=== PATIENT | female | born 1960 | race Caucasian/White ===

== ENCOUNTER 2018-10-03 03:55 | Emergency (ER) | payer MEDICARE, OTHER ==
[~2018-10-03] VITALS: Ht 160 cm; Wt 79.8 kg
--- NOTE | 2018-10-03 04:26 | ED EENT ---
History of Present Illness General Stated Complaint: PAIN IN HEADACHE, EAR Source: patient, spouse History of Present Illness Date Seen by Provider: Oct 03, 2018 Time Seen by Provider: 04:08 Initial Comments 58-year-old female presenting with complaints of pain sick over the last week with "the flu". Tonight she felt like her ears were plugged and she tried to flush them out with some Debrox solution. After that she was having severe right ear pain when going to bed. She was unable to rest due to this. Pain. Finally after over 6 hours of being in pain she came to the emergency department to be evaluated. She states that she is in between providers currently since she has not seen anyone since [facility] closed. She takes hormone therapy and some oc casional chronic pain medicine for her back. She has been having a sore throat and painful swallowing as well as pressure in the right maxillary sinus and now tonight having severe right ear pain. There has been some drainage from the ear since she tried to flush her ears tonight. She has had subjective fever and chills this week as well. She has had poor appetite as well. Allergies and Home Medications Allergies Coded Allergies: No Known Drug Allergies (Unverified , 10/03/18) Home Medications Amoxicillin/Potassium Clav 1 Each Tablet, 1 EACH PO BID Prescribed by: GLYNN STEARNSRT on 10/03/18637 Hydrocodone Bit/Acetaminophen 1 Tab Tab, 1 EACH PO Q6H PRN for PAIN-MODERATE TO SEVERE For Mastoiditis/Sinusitis Prescribed by: GLYNN STEARNSRT on 10/03/18637 Prednisone 20 Mg Tab, 40 MG PO DAILY Prescribed by: GLYNN JENSEN on 10/03/18 0638 Patient Home Medication List Home Medication List Reviewed: Yes Review of Systems Review of Systems Constitutional: see HPI Eyes: See HPI Ears: See HPI Nose: see HPI Mouth: see HPI Throat: see HPI Respiratory: see HPI, cough Cardiovascular: chest pain (chest wall pain from coughing) Gastrointestinal: see HPI, loss of appetite Musculoskeletal: other (generalized body aches and pains) Skin: no symptoms reported Neurological: Anxiety, Headache (especially on the right side) Past Eppwkjg-Ebzwfl-Jluxiq Hx Past Med/Social Hx: Reviewed Nursing Past Med/Soc Hx Physical Exam Vital Signs Vital Signs - First Documented 10/03/18 04:05 Temp 98.2 Pulse 88 Resp 16 B/P (MAP) 193/106 (135) Pulse Ox 97 O2 Delivery Room Air Height, Weight, BMI Height: '" Weight: lbs. oz. kg; BMI Method: General Appearance: WD/WN, moderate distress Eyes: bilateral eye PERRL, bilateral eye EOMI Ears: right ear bleeding, right ear discharge, right ear erythema, right ear tenderness, right ear other (unable to visualize TM due to drainage and blood in the canal); left ear TM dull, left ear TM red, left ear TM bulging Nose: sinus tenderness (right maxillary) Mouth/Throat: pharynx swelling; No tongue swollen, No tonsillar exudate Neck: full range of motion, supple, lymphadenopathy (R), lymphadenopathy (L), tender lateral Cardiovascular: normal peripheral pulses, regular rate, rhythm Respiratory: chest non-tender, lungs clear, normal breath sounds, no re spiratory distress, no accessory muscle use Neurologic/Psychiatric: alert, oriented x 3 Skin: normal color, warm/dry Progress/Results/Core Measures Results/Orders Lab Results Laboratory Tests Test 10/03/18 04:33 10/03/18 04:35 Range/Units White Blood Count 14.9 H 4.3-11.0 10^3/uL Red Blood Count 4.53 4.35-5.85 10^6/uL Hemoglobin 13.8 11.5-16.0 G/DL Hematocrit 42 35-52 % Mean Corpuscular Volume 92 80-99 FL Mean Corpuscular Hemoglobin 30 25-34 PG Mean Corpuscular Hemoglobin Concent 33 32-36 G/DL Red Cell Distribution Width 12.4 10.0-14.5 % Platelet Count 334 130-400 10^3/uL Mean Platelet Volume 8.7 7.4-10.4 FL Neutrophils (%) (Auto) 78 H 42-75 % Lymphocytes (%) (Auto) 11 L 12-44 % Monocytes (%) (Auto) 10 0-12 % Eosinophils (%) (Auto) 1 0-10 % Basophils (%) (Auto) 0 0-10 % Neutrophils # (Auto) 11.5 H 1.8-7.8 X 10^3 Lymphocytes # (Auto) 1.7 1.0-4.0 X 10^3 Monocytes # (Auto) 1.6 H 0.0-1.0 X 10^3 Eosinophils # (Auto) 0.1 0.0-0.3 10^3/uL Basophils # (Auto) 0.0 0.0-0.1 10^3/uL Neutrophils % (Manual) 67 % Lymphocytes % (Manual) 11 % Monocytes % (Manual) 11 % Eosinophils % (Manual) 1 % Band Neutrophils 6 % Reactive Lymphocytes 4 % Blood Morphology Comment NORMAL Sodium Level 140 135-145 MMOL/L Potassium Level 4.0 3.6-5.0 MMOL/L Chloride Level 100 98-107 MMOL/L Carbon Dioxide Level 25 21-32 MMOL/L Anion Gap 15 H 5-14 MMOL/L Blood Urea Nitrogen 9 7-18 MG/DL Creatinine 0.72 0.60-1.30 MG/DL Estimat Glomerular Filtration Rate > 60 BUN/Creatinine Ratio 13 Glucose Level 111 H 70-105 MG/DL Calcium Level 9.4 8.5-10.1 MG/DL Corrected Calcium 9.3 8.5-10.1 MG/DL Total Bilirubin 0.3 0.1-1.0 MG/DL Aspartate Amino Transf (AST/SGOT) 16 5-34 U/L Alanine Aminotransferase (ALT/SGPT) 15 0-55 U/L Alkaline Phosphatase 85 40-136 U/L Total Protein 7.4 6.4-8.2 GM/DL Albumin 4.1 3.2-4.5 GM/DL Group A Streptococcus Screen NEGATIVE NEGATIVE My Orders Orders - GLYNN JENSEN MD Cbc With Automated Diff (10/03/18 04:16) Comprehensive Metabolic Panel (10/03/18 04:16) Rapid Strep A Screen (10/03/18 04:16) Ed Iv/Invasive Line Start (10/03/18 04:16) Dexamethasone Injection (Decadron Inject (10/03/18 04:30) Fentanyl Injection (Sublimaze Injection (10/03/18 04:30) Ns Iv 1000 Ml (Sodium Chloride 0.9%) (10/03/18 04:30) Ct Maxillofacial Wo (10/03/18 04:16) Hydromorphone Injection (Dilaudid Inject (10/03/18 05:12) Ceftriaxone For Iv Use (Rocephin For I (10/03/18 05:13) Manual Differential (10/03/18 04:33) Rx-Hydrocodone/Apap 5-325 Mg (Rx-Vicodin (10/03/18 06:30) Medications Given in ED Vital Signs/I&O Progress Progress Note #1: Progress Note check labs and CT scan through sinuses. Give IVF for hydration, Steroid for swelling and pain, Fentanyl for pain. Progress Note #2: Progress Note Labs show mild elevation of her white blood cell count. Chemistries stable. Her CT scan does show some fluid in the mastoid sinuses and ethmoid sinuses. With her symptoms improved after treatment in the ED Will continue with steroids and pain medicine at home. Encouraged follow-up and return precautions. Advised to check with Dr. Luevano an ENT if she has continued symptoms. Reviewed symptomatic treatment for possible ruptured TM since I was unable to visualize the tympanic membrane on the right side. Diagnostic Imaging Diagonstic Imaging: CT Plain Films/CT/US/NM/MRI: facial bones Comments Mild ethmoid sinus and mixillary sinus mucosal thickening. No air-fluid levels. Mild right mastoid effusion. Read by Dr. Cassandra Noyola at [id number] and faxed at [phone] Reviewed: [facility] Impression Primary Impression: Acute mastoiditis of right side Additional Impression: Acute pain of right ear Disposition: HOME, SELF-CARE Condition: Stable Departure-Patient Inst. Decision time for Depature: 06:30 Referrals: ARABELLA LUEVAON MD NO,LOCAL PHYSICIAN (PCP) Primary Care Physician Patient Instructions: Eustachian Tube Problems (DC), Mastoiditis (DC), Ruptured Eardrum (DC), Sinusitis, Adult (DC) Add. Discharge Instructions: Take antibiotics until gone. Follow up with Dr. Arabella Luevano in clinic this week about your ear, sinuses and Mastoiditis. Try to keep your head elevated when you are resting or sleeping so that you do not get extra pressure built up in your ears and sinuses. Do not let water or fluids get down in your ears when bathing or showering and do not instill any drops in your ears. Scripts Prednisone (Prednisone) 20 Mg Tab 40 MG PO DAILY for 5 Days, #10 TAB 0 Refills Prov: GLYNN JENSEN MD 10/03/18 Hydrocodone Bit/Acetaminophen (Hydrocodone/Acetaminophen 5/325mg Tablet) 1 Tab Tab 1 EACH PO Q6H PRN for PAIN-MODERATE TO SEVERE MDD 10 for 7 Days, #30 TAB 0 Refills For Mastoiditis/Sinusitis Prov: GLYNN JENSEN MD 10/03/18 Amoxicillin/Potassium Clav (Augmentin 875-125 Tablet) 1 Each Tablet 1 EACH PO BID for sinusitis for 10 Days, #20 TAB 0 Refills Prov: GLYNN JENSEN MD 10/03/18 GLYNN JENSEN MD Oct 03, 2018 04:26
[2018-10-03] MEDS ORDERED: NS IV 1000 ML 1,000 ML IV SCH (04:30)
[2018-10-03] MEDS ORDERED: DEXAMETHASONE 10 MG/ML (DECADRON) 1 ML VIAL IV ONE (04:30)
[2018-10-03] MEDS ORDERED: fentaNYL INJECTION 100 MCG/2 ML AMP IVP ONE (04:30)
[2018-10-03] MEDS ORDERED: HYDROmorphone 2 MG/ML VIAL (DILAUDID) IV STA (05:12)
[2018-10-03 05:13] LABS: HEMATOCRIT 42 % (35-52); HEMOGLOBIN 13.8 G/DL (11.5-16.0); MEAN CORPUSCULAR HEMOGLOBIN 30 PG (25-34); MEAN CORPUSCULAR HGB CONC 33 G/DL (32-36); MEAN CORPUSCULAR VOLUME 92 FL (80-99); RED CELL DISTRIBUTION WIDTH 12.4 % (10.0-14.5); WHITE BLOOD COUNT 14.9 10^3/uL (4.3-11.0)
[2018-10-03] MEDS ORDERED: cefTRIAXone FOR IV USE 1,000 MG in WATER (STERILE) FOR INJECTION 10 ML IV STA (05:13)
[2018-10-03 05:14] LABS: BASOPHILS % (AUTO) 0 % (0-10); EOSINOPHILS # (AUTO) 0.1 10^3/uL (0.0-0.3); EOSINOPHILS % (AUTO) 1 % (0-10); LYMPHOCYTES # (AUTO) 1.7 X 10^3 (1.0-4.0); LYMPHOCYTES % (AUTO) 11 % (12-44); MEAN PLATELET VOLUME 8.7 FL (7.4-10.4); MONOCYTES # (AUTO) 1.6 X 10^3 (0.0-1.0); MONOCYTES % (AUTO) 10 % (0-12); NEUTROPHILS # (AUTO) 11.5 X 10^3 (1.8-7.8); NEUTROPHILS % (AUTO) 78 % (42-75); PLATELET COUNT 334 10^3/uL (130-400)
[2018-10-03 05:20] LABS: BILIRUBIN,TOTAL 0.3 MG/DL (0.1-1.0); BUN/CREATININE RATIO 13; CALCIUM 9.4 MG/DL (8.5-10.1); CARBON DIOXIDE 25 MMOL/L (21-32); CHLORIDE 100 MMOL/L (98-107); CREATININE SERUM 0.72 MG/DL (0.60-1.30); GFR ESTIMATED > 60; GLUCOSE 111 MG/DL (70-105); SODIUM 140 MMOL/L (135-145)
[2018-10-03 05:21] VITALS: BP 156/84
[2018-10-03 05:21] LABS: ALANINE AMINOTRANSFERASE 15 U/L (0-55); ALBUMIN 4.1 GM/DL (3.2-4.5); ALKALINE PHOSPHATASE 85 U/L (40-136); TOTAL PROTEIN 7.4 GM/DL (6.4-8.2)
[2018-10-03 05:52] LABS: BAND NEUTROPHILS 6 %; EOSINOPHILS % (MANUAL) 1 %; LYMPHOCYTES % (MANUAL) 11 %; MONOCYTES % (MANUAL) 11 %; NEUTROPHILS % (MANUAL) 67 %
[2018-10-03 05:53] LABS: RBC MORPH NORMAL; REACTIVE LYMPHOCYTES 4 %
[2018-10-03 06:27] VITALS: BP 147/85
--- NOTE | 2018-10-03 06:30 | Diagnostic Imaging Report ---
PROCEDURE: CT maxillofacial without contrast. TECHNIQUE: Multiple contiguous axial images were obtained through the facial bones without the use of intravenous contrast. Auto Exposure Controls were utilized during the CT exam to meet ALARA standards for radiation dose reduction. INDICATION: Right ear and sinus pain COMPARISON: None FINDINGS : BRAIN: The visualized brain and intracranial compartment is unremarkable. ORBITAL AND PERIORBITAL SOFT TISSUES: Globes are intact. No focal abnormalities demonstrated in the retrobulbar fat. The extraocular muscles are normal. FACIAL SOFT TISSUES: Ovoid calcification is demonstrated anterior to the superior aspect of the right parotid gland, possibly representing an epidermal inclusion cyst or retained foreign body. No focal collection or swelling is demonstrated. ORBITAL TAPIA: Normal. PARANASAL SINUSES: There is marked mucosal thickening in the inferior left maxillary sinus and to a lesser degree in the right maxillary sinus. There is marked mucosal thickening and partial opacification of the ethmoid air cells. There is partial opacification of the right mastoid air cells. The remaining paranasal sinuses and mastoid air cells are clear. NASAL BONES: No displaced fracture. ZYGOMATIC ARCHES: Normal. PTERYGOID PLATES: Normal. MAXILLA AND ALVEOLUS: Normal. MANDIBLE: Normal. No fracture or dislocation. IMPRESSION: Ethmoid and maxillary sinus mucosal thickening. Partial opacification of the right mastoid air cells. Mastoiditis should be excluded on a clinical basis. Findings are in agreement with initial teleradiology report. Dictated by: Dictated on workstation # [id number]
[2018-10-03] MEDS: RX-HYDROCODONE/APAP 5/325 MG #4 TAB PK PO PRN ×2 (06:35→06:36)
[2018-10-03] MEDS ORDERED: PRD20T PO (06:38)
[2018-10-03] MEDS ORDERED: AMOX-358 PO (06:38)
[2018-10-03] MEDS ORDERED: ACHD5005 PO (06:38)
== END 2018-10-03 06:48 | disposition home or self-care (01) ==
LOC: ER FS 03:58
DX: H70.001 Acute mastoiditis without complications, right ear (principal); Z79.52 Long term (current) use of systemic steroids
CPT/HCPCS: 36415; 70486; 80053; 85007; 85027; 87430; 96361; 96374; 96375

== ENCOUNTER → 2022-01-28 | Outpatient (CLI) | payer MEDICARE ==
[~2022-01-28] MED LIST: ACHD5005 PO; AMOX-358 PO; PRD20T PO
--- NOTE | 2022-01-28 19:40 | Diagnostic Imaging Report ---
INDICATION: Pain. COMPARISON: None available. TECHNIQUE: Two radiographs of the right hip dated 01/28/2022. FINDINGS: No acute fracture or dislocation. No destructive osseous process. Mild degenerative changes involving the pubic symphysis. The right hip is well maintained. The right femoral head maintains its normal shape and contour. No suspicious radiopaque foreign body. IMPRESSION: No acute osseous abnormality with mild degenerative changes present, particularly involving the pubic symphysis. Dictated by: Dictated on workstation # [id number]
== END ==
LOC: RAD FS 11:18
PROVIDERS: ATTEND Orthopaedic Surgery
DX: M16.11 Unilateral primary osteoarthritis, right hip (principal)
CPT/HCPCS: 73502

== ENCOUNTER → 2022-01-31 | Outpatient (CLI) | payer MEDICARE ==
--- NOTE | 2022-01-31 15:07 | Diagnostic Imaging Report ---
INDICATION: Back pain with left hip pain. COMPARISON: None. FINDINGS: Frontal and lateral views of the lumbar spine were obtained. Transitional lumbosacral anatomy is noted. Alignment and vertebral heights are maintained. There is no fracture or destructive process. Multilevel degenerative disease is noted in the lumbar spine. Limited views of the abdomen demonstrate nonobstructive bowel gas pattern. IMPRESSION: 1. No acute fracture or dislocation of the lumbar spine. 2. Mild multilevel degenerative changes. Dictated by: Dictated on workstation # [id number]
== END ==
LOC: RAD FS 13:52
PROVIDERS: ATTEND Orthopaedic Surgery
DX: M47.26 Other spondylosis with radiculopathy, lumbar region (principal)
CPT/HCPCS: 72100

== ENCOUNTER → 2022-02-11 | Outpatient (CLI) | payer MEDICARE ==
--- NOTE | 2022-02-11 20:19 | Diagnostic Imaging Report ---
PROCEDURE: MRI lumbar spine. TECHNIQUE: Multiplanar, multisequence MRI of the lumbar spine was performed without contrast. INDICATION: Chronic back pain radiating into the right hip. CORRELATION limited to radiographs dated 01/31/2022. There is transitional anatomy with partial lumbarization of the S1 segment with an S1-S2 rudimentary disc. Given this level assignment, the L5-S1 disc shows desiccation, stature loss and diffuse bulge as well as facet arthrosis and thickened ligamenta flava. Findings result in a moderate to severe magnitude of central canal stenosis with mild to moderate left and moderate to severe right neural foraminal narrowing as well as at least moderate impingement of the right greater than left lateral recesses. The L4-L5 disc shows desiccation and circumferential diffuse bulge resulting in mild to moderate bi-foraminal narrowing and mild canal stenosis. The L2-L3 level shows no significant abnormality. The L2-L3 level and disc normal, no stenosis. The L1-L2 level and disc normal. No stenosis. Lumbar statures are normal. The marrow signal intensity normal. No acute or chronic fracture. The conus normal. There is normal dispersal of the nerves of the cauda equina. IMPRESSION: 1. Lower lumbar spondylosis and facet arthrosis with resultant canal, foraminal and recess stenoses detailed above. 2. Normal alignment. No marrow edema. No acute bony pathology. Dictated by: Dictated on workstation # [id number]
== END ==
LOC: RAD 13:15
PROVIDERS: ATTEND Orthopaedic Surgery
DX: M47.26 Other spondylosis with radiculopathy, lumbar region (principal); M48.061 Spinal stenosis, lumbar region without neurogenic claudication
CPT/HCPCS: 72148